=== PATIENT | male | born 1945 | race Caucasian/White ===

== ENCOUNTER → 2021-11-17 | Outpatient (CLI) | payer MEDICARE, OTHER ==
[~2021-11-17] MED LIST: ADULT LOW DOSE81 MG PO; ADVAIR 250-501 EACH INH; CAL MAG ZINC +1 EAC1 PO; FLOMAX0.4 MG PO; LIPITOR20 MG PO; METAMUCIL0.4 GM PO; OXYCODONE HCL 55 MG PO; PROAIR HFA8.5 GM INH; PROSCAR 5MG TABL5 M1 PO; SINGULAIR 10 MG10 MG PO; SPIRIVA18 MCG INH; ZIAC 5-6.25 MG1 EACH PO
[2021-11-17 10:09] LABS: CREATININE 1.4 mg/dL (0.6-1.3)
== END ==
LOC: M.LAB 09:40
PROVIDERS: ATTEND Surgery
DX: Z01.812 Encounter for preprocedural laboratory examination (principal); Z20.822 Contact with and (suspected) exposure to COVID-19

== ENCOUNTER → 2021-11-19 | Day surgery (SDC) | payer MEDICARE, OTHER ==
[2021-11-19 10:50] LABS: ABSOLUTE BASOPHILS 0.1 thou/uL (0.0-0.2); ABSOLUTE EOSINOPHILS 0.2 thou/uL (0.0-0.7); ABSOLUTE LYMPHOCYTES 1.1 thou/uL (0.8-5.3); ABSOLUTE MONOCYTES 0.4 thou/uL (0.0-1.2); ABSOLUTE NEUTROPHILS 6.5 thou/uL (1.6-8.1); BASOPHILS 0.6 %; EOSINOPHILS 1.9 %; HEMATOCRIT 45.3 % (42.0-52.0); HEMOGLOBIN 15.1 gm/dL (14.0-18.0); MCH 30.6 pg (26.0-34.0); MCHC 33.2 g/dL (28.0-37.0); MONOCYTES 4.9 %; MPV 7.5 fl. (7.2-11.1); NUCLEATED RBCS 0 /100WBC; PLATELET COUNT* 212 thou/uL (150-400); POLYS 79.6 %; RBC 4.93 mil/uL (4.50-6.00); RDW-CV 14.1 % (10.5-14.5); WBC 8.1 thou/uL (4.0-11.0)
[2021-11-19 10:58] LABS: CALCIUM 9.1 mg/dL (8.5-10.1); CREATININE 1.3 mg/dL (0.6-1.3); POTASSIUM 3.7 mmol/L (3.5-5.1)
--- NOTE | 2021-11-19 15:37 | OP ---
[address] [address] OPERATIVE REPORT Name: DARVIN SANCHEZ Room: [facility]#: [id number] Admission: 11/19/21 Attend Phys: Vasyl Khan DO Discharge: Date of : 43 Report #: [id number] THIS REPORT FOR: cc: Chauncey Figueroa MD, Dean L. MD Kramer, Adam P. DO ~ cc: Chauncey Figueroa MD DATE OF SURGERY: 11/19/2021 REFERRING PHYSICIAN: Dr. Chauncey Figueroa. PREOPERATIVE DIAGNOSIS: Right inguinal hernia. POSTOPERATIVE DIAGNOSIS: Right direct inguinal hernia. PROCEDURE: Right inguinal hernia repair with 11 x [address] mesh. SURGEON: Vasyl Khan DO STORE LOSS PREVENTION MANAGER: Jose Galaviz DO, PGY2 resident. ANESTHESIA: General with an LMA. ESTIMATED BLOOD LOSS: Less than 10 mL. COMPLICATIONS: None. DESCRIPTION OF PROCEDURE: After obtaining proper consents and marking the patient in the preoperative holding area, he was taken to the operating room, laid in the supine position, administered general anesthesia. He was then prepped and draped in the usual sterile fashion. Timeout was performed. We confirmed the appropriate patient and procedure, the site had been marked in the preoperative holding area and was visualized. We then made a 5 cm incision midway between the ASIS and pubic tubercle. This was carried down through the skin into the subcutaneous tissue using electrocautery for hemostasis. Once the external oblique fascia was encountered, it was incised along the fibers and grasped and elevated with hemostats and opened further with Metzenbaum scissors. We then identified the internal oblique muscle and ilioinguinal nerve. The internal oblique muscle was then split, assuring no injury to the nerve. We then identified the transversalis fascia and the inferior epigastric vessels, which were retracted medially. The transversalis fascia was bluntly opened using a hemostat. I then brought the spermatic cord and structures up into the wound to check for an indirect inguinal hernia. There was none noted. We did, however, note a moderate-sized direct inguinal hernia. This was completely dissected free and reduced back into the peritoneal [place] [address] OPERATIVE REPORT Name: DARVIN SANCHEZ [id number] Admission: 11/19/21 Attend Phys: Vasyl Khan DO Discharge: Date of : 43 Report #: [id number] finger dissection to enlarge the preperitoneal space in order to place an 11 x [address] mesh. This mesh was inserted all the way down below the pubic ramus and medially over to the pubic tubercle and was opened in its entirety and then sutured in place to the transversalis fascia using 0 PDS suture. The internal oblique muscle was then also approximated using 0 PDS suture. The external oblique fascia was then closed using a running 0 Vicryl suture. The subcutaneous tissues were closed using 3-0 Vicryl suture. Skin incision was closed using 4-0 Monocryl and then Dermabond. The patient was awakened in the operating room and transported to recovery room in stable condition. <ELECTRONICALLY SIGNED> By: Vasyl Khan DO 11/19/21 1537 1319 1342Afrank Khan DO /nt
--- NOTE | 2021-11-19 15:53 | EKG ---
[place] [address] ELECTROCARDIOGRAM REPORT Name: DARVIN SANCHEZ Room: [facility]#: [id number] Admission: 11/19/21 Attend Phys: Vasyl Khan DO Discharge: Date of : 43 Date of Service: 11/19/21 1112 Report #: [id number] THIS REPORT FOR: //name// [facility] Test Date: 2021-11-19 Test Time: 11:12:23 Pat Name: DARVIN SANCHEZ Department: Room: Gender: Party Demonstr[place] [facility] [place] 1945 Requested By: Vasyl Khan Order Number: [id number] Reading MD: Leif Sanders Measurements Intervals [place] Rate: 59 P: -30 MA: 218 QRS: -42 QRSD: 117 T: 34 QT: 436 QTc: 432 Interpretive Statements Sinus rhythm Borderline prolonged MA interval Probable left atrial enlargement Inferior infarction artifact No previous ECG available for comparison Electronically Signed On 11-19-2021 15:53:28 [employer] by Leif Sanders [email or web address] <ELECTRONICALLY SIGNED> By: Leif Sanders MD, [facility] 11/19/21 1553 1112 111 Leif Sanders MD, [facility] /EPI
== END | disposition home or self-care (01) ==
LOC: M.SUR 04:59
PROVIDERS: ATTEND Surgery
DX: K40.90 Unilateral inguinal hernia, without obstruction or gangrene, not specified as recurrent (principal); I10 Essential (primary) hypertension; E78.00 Pure hypercholesterolemia, unspecified; J44.9 Chronic obstructive pulmonary disease, unspecified; N40.0 Benign prostatic hyperplasia without lower urinary tract symptoms; F17.210 Nicotine dependence, cigarettes, uncomplicated; Z98.890 Other specified postprocedural states; Z79.899 Other long term (current) drug therapy